=== PATIENT | female | born 1960 | race Caucasian/White ===

== ENCOUNTER 2024-05-24 13:18 | Emergency (ER) | payer OTHER ==
[~2024-05-24] VITALS: Ht 157.5 cm; Wt 99.8 kg
[2024-05-24 13:27] VITALS: BP 144/67; PULSE 85; RESP 16; TEMP 97.2; O2SAT 97
[2024-05-24] MEDS: IBUPROFEN 600 MG TAB PO ONE (13:59)
[2024-05-24] MEDS ORDERED: IBUP-2213 PO (15:16)
[2024-05-24 15:33] VITALS: BP 134/60; PULSE 79; RESP 18; TEMP 97.3; O2SAT 98
== END 2024-05-24 15:33 | disposition home or self-care (01) ==
LOC: MED 13:18
DX: S83.92XA Sprain of unspecified site of left knee, initial encounter (principal); Z79.899 Other long term (current) drug therapy; X58.XXXA Exposure to other specified factors, initial encounter; Y92.89 Other specified places as the place of occurrence of the external cause; Y93.89 Activity, other specified; Y99.8 Other external cause status
CPT/HCPCS: 73562; 99283